=== PATIENT | female | born 1985 | race Caucasian/White ===

== ENCOUNTER 2017-10-13 13:15 | Emergency (ER) | payer BC ==
[2017-10-13] MEDS: ONDANSETRON ODT 4 MG TAB.RAPDIS. PO (13:54)
[2017-10-13 13:56] LABS: URINE HCG POC HCG NEGATIVE (Negative)
[2017-10-13] MEDS: HYDROcodone/APAP 10/325 1 TAB TABLET PO (13:56)
== END 2017-10-13 16:05 | disposition home or self-care (01) ==
LOC: ER 13:15
DX: S30.0XXA Contusion of lower back and pelvis, initial encounter (principal); S20.222A Contusion of left back wall of thorax, initial encounter; S20.221A Contusion of right back wall of thorax, initial encounter; E28.2 Polycystic ovarian syndrome; G89.29 Other chronic pain; W10.9XXA Fall (on) (from) unspecified stairs and steps, initial encounter; Y93.89 Activity, other specified; Y92.89 Other specified places as the place of occurrence of the external cause; Y99.8 Other external cause status
CPT/HCPCS: 70450; 72125; 72128; 72131; 81025; 99284-25; Q0162